=== PATIENT | male | born 2000 | race Caucasian/White ===

== ENCOUNTER 2020-12-22 10:10 | Emergency (ER) | payer OTHER, SELFPAY ==
--- NOTE | 2020-12-22 10:25 | ED.SKABFB ---
HPI - Skin/Abscess/Foreign Bdy General Chief complaint: Skin/Abscess/Foreign Body Stated complaint: Rash Time Seen by Provider: 12/22/20 10:27 Source: patient Mode of arrival: ambulatory Limitations: no limitations History of Present Illness HPI narrative: Gonzales Sears is a 20 yo male with no PMH who comes to express care with a rash that is pruritic across chest and R side of mouth for ;last 2 weeks. 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 Had COVID in August with loss of taste and smell. Related Data Allergies Allergy/AdvReac Type Severity Reaction Status Date / Time No Known Allergies Allergy Verified 01/06/13 19:05 Review of Systems Review of Systems: Narrative: CONSTITUTIONAL: Denies fever, chills, sweats. EYES: Denies visual changes, redness, discharge. ENT: Denies rhinorrhea, congestion, sore throat, otalgia. CARDIOVASCULAR: Denies chest pain, palpitations, edema. RESPIRATORY: Denies dyspnea, wheezing, cough GASTROINTESTINAL: Denies abdominal pain, nausea, vomiting, diarrhea. GENITOURINARY: Denies dysuria, hematuria, abnormal discharge SKIN: Rash on chest and back of neck and left side of mouth NEUROLOGIC: Denies numbness, or focal weakness. PSYCHIATRIC: Denies anxiety or depression. PMFSH Past Medical History Medical History (Updated 12/22/20 @ 10:56 by Myah Lamb CNP) No acute medical problems Family History Family History (Updated 12/22/20 @ 10:51 by Myah Lamb CNP) Father Diabetes mellitus Other Heart disease Hypertension Rheumatoid arthritis Social History Social History (Updated 12/22/20 @ 10:51 by Myah Lamb CNP) Smoking status: Current some day smoker Tobacco type: e-cigarettes/vaping Alcohol intake: current Gender identity (if verbalized by the patient): Male Comments At time of signature, I agree with nursing past medical, surgical, social and family history. There is no relevant family history pertinent to the presenting complaint. Exam Narrative: Exam Narrative: GENERAL: This is a well-nourished, well-developed patient, in mild distress. HEAD: normocephalic, atraumatic. EYES: . Sclera clear/white. Vision is grossly intact. EARS: External ears normal, . Hearing grossly intact. NOSE: External nose normal without nasal discharge, nares without redness, no rhinorrhea. THROAT: Mucous membranes moist, NECK: Neck supple, CARDIOVASCULAR: Regular rate and rhythm without murmurs, gallops, or rubs. RESPIRATORY: Clear to auscultation. Breath sounds equal bilaterally. No wheezes, rales, or rhonchi. GASTROINTESTINAL: Abdomen soft, non-tender, SKIN: warm, intact with erythema at base with healing lesions some of them vesicular, both sides of chest back of neck and left of mouth, most of them are pruritic although one of the side of the mouth also is tender. No lesions in mouth mucous membranes. NEURO: awake, alert, and oriented to person, place and time. There were no obvious focal neurologic abnormalities. Steady gait EXTREMITIES: Normal range of motion. BACK: Nontender without deformity Course Course Emergency Course: [facility] a rash has been present for 2 weeks is spreading and is pruritic Started on mupirocin and Augmentin-discussed treatment and washing area with warm soapy water Vital Signs Vital signs: Vital Signs Temperature 98.1 F 12/22/20 10:26 Pulse Rate 92 12/22/20 10:26 Respiratory Rate 16 12/22/20 10:26 Blood Pressure 127/75 12/22/20 10:26 Pulse Oximetry 99 12/22/20 10:26 Temperature 98.1 F 12/22/20 10:30 Pulse Rate 92 12/22/20 10:30 Respiratory Rate 16 12/22/20 10:30 Blood Pressure 127/75 12/22/20 10:30 Pulse Oximetry 99 12/22/20 10:30 MDM - Skin/Abscess/Foreign Bdy Differential Diagnosis Differential diagnosis: Likely abscess of skin or subcutaneous tissue, cellulitis, contact dermatitis and other Discharge Plan Discharge Clinical Impress
[2020-12-22 10:26] VITALS: BP 127/75; PULSE 92; RESP 16; TEMP 36.7; O2SAT 99
[2020-12-22 10:30] VITALS: BP 127/75; PULSE 92; RESP 16; TEMP 36.7; O2SAT 99
== END 2020-12-22 11:01 | disposition home or self-care (01) ==
PROVIDERS: Emergency Provider Nurse Practitioner; PCP Family Medicine Adolescent Medicine
DX: L01.00 Impetigo, unspecified (principal); F17.200 Nicotine dependence, unspecified, uncomplicated; Z86.16 Personal history of COVID-19
CPT/HCPCS: 99213; G0463